=== PATIENT | female | born 1965 | race African-American/Black ===

== ENCOUNTER 2021-04-25 14:55 | Outpatient (REF) | payer OTHER, SELFPAY ==
--- NOTE | ~2021-04-25 | MR_ITS ---
EXAMINATION: MR KNEE WITHOUT CONTRAST, LEFT CLINICAL INFORMATION: Left knee pain. Effusion. COMPARISON: None TECHNIQUE: MRI of the knee without contrast was performed using routine sequences on a high-field scanner. FINDINGS: MENISCI: Medial Meniscus: There is a oblique radial tear through the posterior horn near the junction with the meniscal body, involving majority of the meniscal cross-section. Surrounding soft tissues are edematous. Lateral Meniscus: Intact LIGAMENTS: Cruciate: Intact Collateral: Edema signal around the MCL is likely reactive to the underlying meniscal abnormality. Collateral ligaments are intact. EXTENSOR MECHANISM: Enthesopathic spurring is present at the quadriceps tendon insertion and patellar tendon origin. Quadriceps and patellar tendons are intact. ARTICULAR CARTILAGE/BONE: Patellofemoral Compartment: There is a 1 cm transverse full-thickness chondral fissure at the inferior aspect of the lateral trochlear facet with subchondral cortical irregularity and subchondral edema signal. Medial Compartment: Minimal reactive subchondral edema in the medial tibial plateau and the medial femoral condyle. Mild chondral thinning at the medial tibial plateau. Lateral Compartment: Normal JOINT FLUID AND BURSAE: Moderate-sized joint effusion. Small Stock's cyst. MR/MR knee LT wo con IMPRESSION: 1. Oblique radial tear of the medial meniscus 2. Minimal arthrosis in the patellofemoral and medial compartments. 3. Moderate size joint effusion and small Stock's cyst.
== END 2021-04-25 14:56 | disposition home or self-care (01) ==
LOC: HO.MRI 14:55
PROVIDERS: PCP Family Medicine; Visit Provider Family Medicine
DX: M25.562 Pain in left knee (principal)
CPT/HCPCS: 73721

== ENCOUNTER 2021-08-14 18:59 | Outpatient (REF) | payer OTHER, SELFPAY ==
--- NOTE | ~2021-08-14 | MR_ITS ---
EXAMINATION: MR BRAIN WITHOUT CONTRAST CLINICAL INFORMATION: Headaches and memory loss. COMPARISON: None. TECHNIQUE: Multiplanar, multisequence imaging of the brain was performed without contrast. FINDINGS: No diffusion abnormalities are identified to suggest an acute or subacute infarct. The ventricles are normal in size. No mass effect or midline shift is seen. Minimal scattered white matter signal changes are entirely nonspecific. No extra-axial fluid collections are seen. 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 The brainstem is normal. The gradient refocused acquisition demonstrates no pathologic magnetic susceptibility artifact to indicate underlying acute or chronic blood products. The craniovertebral junction, marrow signal, and midline structures are normal. The major intracranial flow voids at the level of the solomon of [place] are preserved. The dural venous sinus flow voids are maintained. The mastoid air cells and paranasal sinuses are well aerated. MR/MR head/brain wo con IMPRESSION: No acute intracranial process. Nonspecific minimal scattered white matter signal changes. 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
== END 2021-08-14 19:00 | disposition home or self-care (01) ==
LOC: HO.MRI 18:59
PROVIDERS: Visit Provider Internal Medicine
DX: R51.0 Headache with orthostatic component, not elsewhere classified (principal); R41.3 Other amnesia
CPT/HCPCS: 70551

== ENCOUNTER 2023-09-19 09:26 | Outpatient (REF) | payer BC, SELFPAY | END 2023-09-19 09:27 | disposition home or self-care (01) | LOC: HO.UMASIMG 09:26 | PROVIDERS: Visit Provider Family Medicine | DX: I10 Essential (primary) hypertension (principal) | CPT/HCPCS: 76536 ==

== ENCOUNTER 2024-08-21 06:30 | Outpatient (REF) | payer BC, SELFPAY ==
--- NOTE | ~2024-08-21 | US_ITS ---
EXAMINATION: US THYROID CLINICAL INFORMATION: Lobe/fullness in the left lateral supraclavicular area. COMPARISON: Left neck ultrasound dated 09/19/2023 TECHNIQUE: Linear transducer pearce-scale and color Doppler examination with attention to the region of the left supraclavicular area and lateral neck. FINDINGS: Focused ultrasound in the area of palpable concern in the left supraclavicular area demonstrates a reniform lymph node with retained fatty hilum and no focal cortical thickening measuring 2.9 x 2.6 x 0.8 cm, previously measured 1.0 x 0.8 x 0.8 cm. The second nodule previously seen on ultrasound is not visualized on today's study. No abnormal appearing lymphadenopathy, mass, or fluid collection visualized. US/US soft tiss head and/or neck IMPRESSION: Morphologically normal-appearing lymph node in the area of palpable concern in the left supraclavicular region. The previously seen lymph node in the left submandibular region is not visualized on today's study. No pathologically enlarged lymph nodes, masses, or fluid collection visualized. Electronically signed by: Ekta Godoy MD 08/22/2024 08:23 AM [facility]
== END 2024-08-21 06:31 | disposition home or self-care (01) ==
LOC: HO.UMASIMG 06:30
PROVIDERS: Visit Provider Family Medicine
DX: I10 Essential (primary) hypertension (principal); R73.03 Prediabetes; E55.9 Vitamin D deficiency, unspecified
CPT/HCPCS: 76536